=== PATIENT | female | born 1940 | race Caucasian/White ===

== ENCOUNTER → 2017-02-19 | Outpatient (CLI) | payer MEDICARE ==
--- NOTE | 2017-02-19 12:58 | Diagnostic Imaging Report ---
3 views of the lumbar spine. INDICATION: Back pain. FINDINGS: There is an S-shaped scoliosis with prominent left convexity scoliotic curvature centered around L2 vertebral body. The alignment of the posterior spinal line appears to be satisfactory. No compression fractures evident based on the AP projection. The lateral projection is difficult to evaluate for vertebral body height due to the significant scoliosis. There are disc degenerative changes particularly prominent around the concavity of the scoliosis around L2-L3 level on the right side and along the left side of the disc at L4-L5 and L5-S1. There is suggestion of lower lumbar spine facet arthropathy. IMPRESSION: Severe thoracolumbar S-shaped scoliosis with advanced degenerative disc and facet changes in the lumbar spine. Dictated by: Dictated on workstation # [id number]
--- NOTE | 2017-02-19 13:21 | Diagnostic Imaging Report ---
EXAMINATION: PA and lateral views of the chest. INDICATION: Cough. FINDINGS: There is an S-shaped thoracolumbar scoliosis convex to the right side in the mid thoracic spine. The lungs appear hyperinflated. The heart size is normal. No effusion or pneumothorax. The mediastinum and radha appear unremarkable. IMPRESSION: COPD. Prominent S-shaped thoracolumbar scoliosis. Dictated by: Dictated on workstation # [id number]
== END ==
LOC: RAD 12:13
PROVIDERS: ATTEND Family Medicine
DX: J44.9 Chronic obstructive pulmonary disease, unspecified (principal); M41.30 Thoracogenic scoliosis, site unspecified; M51.36 Other intervertebral disc degeneration, lumbar region
CPT/HCPCS: 71020; 72100

== ENCOUNTER → 2017-03-22 | Outpatient (CLI) | payer MEDICARE ==
--- NOTE | 2017-03-22 11:44 | Diagnostic Imaging Report ---
EXAMINATION: DEXA scan. INDICATION: Osteopenia. TECHNIQUE: Bone mineral density estimated based on dual energy radiography over the lumbar spine and femoral necks, was performed. FINDINGS: The lumbar spine T-score is -0.8. This is a 0.9% decreased density measurement compared to previous study of 06/25/2014. The lumbar spine measurements are exaggerated by sclerotic degenerative changes. T score over the left femoral neck is -1.6 and on the right side is -2. This is not significantly changed from 2015. IMPRESSION: Osteopenia. Dictated by: Dictated on workstation # [id number]
== END ==
LOC: RAD 09:53
PROVIDERS: ATTEND Family Medicine
DX: M85.88 Other specified disorders of bone density and structure, other site (principal); M81.8 Other osteoporosis without current pathological fracture
CPT/HCPCS: 77080

== ENCOUNTER → 2017-11-22 | Outpatient (CLI) | payer MEDICARE ==
--- NOTE | 2017-11-22 16:39 | Diagnostic Imaging Report ---
PROCEDURE: US carotid duplex, bilateral. TECHNIQUE: Multiple real-time grayscale images were obtained over the carotid arteries in various projections, bilaterally. Additional duplex Doppler and color Doppler images were also obtained. INDICATION: Amaurosis fugax. Visual disturbances in the left eye. COMPARISON: Report from [facility] neck from 04/22/2010. FINDINGS: There is mild focal calcific atherosclerosis in the proximal left internal carotid artery, causing approximately 30% stenosis visually. There is also mild calcific atherosclerosis in the proximal right internal carotid artery, causing up to 50% stenosis visually. No significant stenosis is seen in the bilateral common carotid arteries. Waveforms appear normal bilaterally. The vertebral arteries are antegrade. Parameters based on the consensus panel Simms-Scale and Doppler ultrasound criteria published February 2003, Radiology, Volume 229. DOPPLER (peak systolic velocity M/S Right Left CCA 86 73 ICA Proximal 88 148 ICA Mid 79 128 ICA Distal 157 108 RATIO 1.8 2.0 ECA 99 118 VERT 108, antegrade 78, antegrade IMPRESSION: 1. Atherosclerosis of the proximal left internal carotid artery appears less than 50% visually, but qualifies as 50-69% stenosis by flow velocity criteria. 2. Atherosclerosis at the proximal right internal carotid artery appears to cause 50% stenosis visually, but no significant stenosis by flow velocity criteria. Distal ICA velocity is increased, likely due to tortuosity. Dictated by: Dictated on workstation # [id number]
== END ==
LOC: RAD 15:41
PROVIDERS: ATTEND Family Medicine
DX: I65.23 Occlusion and stenosis of bilateral carotid arteries (principal)
CPT/HCPCS: 93880

== ENCOUNTER → 2020-03-23 | Outpatient (CLI) | payer MEDICARE ==
--- NOTE | 2020-03-23 10:10 | Diagnostic Imaging Report ---
PROCEDURE: US Gallbladder. TECHNIQUE: Multiple real-time grayscale images were obtained over the right upper quadrant in various projections. INDICATION: Gallbladder ultrasound. INDICATION: Abdominal pain. There are no prior studies available for comparison. There is no evidence for cholelithiasis or acute cholecystitis and the common bile duct is not dilated. The liver does not appear enlarged. There is no focal mass involving the liver and the biliary tree is not abnormally dilated. Spectral and color-flow imaging of the portal vein shows the vein is patent. The pancreas, the aorta and inferior vena cava and the right kidney are unremarkable for an acute abnormality. There is no mass or free fluid collection evident. IMPRESSION: 1. There is no acute abnormality in the right upper quadrant. 2. If clinical concern regarding an acute abnormality of the gallbladder persists and further imaging is desired, then a nuclear medicine hepatobiliary scan would be recommended. Dictated by: Dictated on workstation # [id number]
== END ==
LOC: RAD 08:30
PROVIDERS: ATTEND Internal Medicine Gastroenterology
DX: K80.20 Calculus of gallbladder without cholecystitis without obstruction (principal)
CPT/HCPCS: 76705

== ENCOUNTER → 2022-03-10 | Outpatient (CLI) | payer MEDICARE ==
--- NOTE | 2022-03-10 11:27 | Diagnostic Imaging Report ---
CLINICAL INDICATION: Patient is having low back pain with left leg pain and right lower pelvic area numbness. EXAM: MRI of the lumbar spine performed without IV contrast. Sagittal T2, sagittal T1, sagittal T2 fat-sat, coronal T2, and axial T2. COMPARISON: X-ray of the lumbar spine dated 02/19/2017. FINDINGS: There is roughly 44 degrees of levorotoscoliosis of the lumbar spine with apex at the L2-L3 disk space region. There are hypertrophic spurs throughout the lumbar spine and facet arthropathy. The visualized portions of the distal thoracic spinal cord, conus medullaris, and cauda equina nerve roots are unremarkable. The conus medullaris tip is seen at the upper L2 vertebral body level. There is no significant paraspinal soft tissue abnormality. There is a 9 mm cyst involving the upper aspect of the left kidney. T12-L1: There is minimal diffuse disk bulge and mild bilateral facet arthropathy. There is no significant central spinal canal or neural foramen narrowing. L1-L2: There is moderate right facet arthropathy and mild left facet arthropathy. There is a minimal diffuse disk bulge with severe loss of disk space height. There is mild central canal stenosis predominantly due to facet arthropathy. There is plquendp-lr-neoxig right neural foramen narrowing. There is no significant left neural foramen narrowing. L2-L3: Minimal diffuse disk bulge with hypertrophic far lateral disk spur. Severe loss of disk space height. There is moderate bilateral facet arthropathy with hypertrophic changes on the right side. There is ligamentum flavum buckling. There is no significant central canal stenosis. There is no significant neural foramen narrowing. L3-L4: There is diffuse disk bulge and cujwgufb-sd-vofugu loss of disk space height. There is severe right facet arthropathy/hypertrophy and moderate left facet arthropathy/hypertrophy. There is qeyo-fg-nerqusaz central canal stenosis. There is mild left neural foramen narrowing and moderate right neural foramen narrowing. L4-L5: There is severe left facet arthropathy/hypertrophy and mild right facet arthropathy. There is mild central canal stenosis. There is mild right neural foramen narrowing, and there is severe left neural foramen narrowing. L5-S1: There is diffuse disk bulge and mild loss of disk space height. There is severe left facet arthropathy/hypertrophy and moderate right facet arthropathy. There is no significant central canal stenosis. There is severe left neural foramen narrowing and bsog-gw-rikchqxx right neural foramen narrowing. IMPRESSION: There is levorotoscoliosis and severe degenerative disease of the lumbar spine, which is described in detail above. Dictated by: Dictated on workstation # [id number]
== END ==
LOC: RAD 09:30
PROVIDERS: ATTEND Family Medicine
DX: M47.816 Spondylosis without myelopathy or radiculopathy, lumbar region (principal); M51.36 Other intervertebral disc degeneration, lumbar region; M51.26 Other intervertebral disc displacement, lumbar region; M48.061 Spinal stenosis, lumbar region without neurogenic claudication; M41.86 Other forms of scoliosis, lumbar region; R20.0 Anesthesia of skin
CPT/HCPCS: 72148

== ENCOUNTER → 2022-03-29 | Outpatient (CLI) | payer MEDICARE | LOC: CARD 14:00 | PROVIDERS: ATTEND Internal Medicine Cardiovascular Disease | DX: I34.0 Nonrheumatic mitral (valve) insufficiency (principal); I10 Essential (primary) hypertension; I25.10 Atherosclerotic heart disease of native coronary artery without angina pectoris | CPT/HCPCS: 93306 ==

== ENCOUNTER → 2022-04-05 | Outpatient (CLI) | payer MEDICARE ==
[~2022-04-05] VITALS: Ht 153.9 cm; Wt 91.7 kg
[2022-04-05 10:11] VITALS: BP 161/80
--- NOTE | 2022-04-05 17:32 | Cardiology Stress Test Report ---
Stress Test Report Date of Procedure/Referring: Date of Procedure: Apr 05, 2022 PCP Carmela Covarrubias DO Admitting Physician Admitting Physician: Attending Physician: Paulina Gonzalez MD Indications: HTN Baseline Heart Rate: 71 Baseline Blood Pressure: Blood Pressure Systolic: 161 Blood Pressure Diastolic: 80 Vital Signs Date Time Temp Pulse Resp B/P (MAP) Pulse Ox O2 Delivery O2 Flow Rate FiO2 04/05/22 10:11 70 20 161/80 (107) 98 Room Air Baseline Vital Signs Vital Signs Date Time Temp Pulse Resp B/P (MAP) Pulse Ox O2 Delivery O2 Flow Rate FiO2 04/05/22 10:11 70 20 161/80 (107) 98 Room Air Baseline EKG: Baseline EKG: NSR, RBBB Summary: After explaining the procedure and details to the patient, she signed the consent and was brought to the stress nuclear laboratory. Patient exercised on standard Robin protocol, EKG, heart rate and blood pressure were monitored continuously, resting and stress doses of radio tracer were injec elysia, imaging was acquired and reviewed in the short axis, horizontal long axis and vertical long axis views Patient was able to exercise for a total of 2.30 minutes on Robin protocol, METs 4.0 Maximum heart rate 141 Maximum blood pressure 183/60 Stress EKG, Minimal nondiagnostic changes Recovery EKG, Return to baseline TID: 1.15 SSS: 3 SDS: 1 EF: 68 Conclusion: 1. Fair exercise tolerance for a total of 2 minutes and 30 seconds on standard Robin protocol, 4 METS achieving 100% of maximal expected heart rate 2. Appropriate heart rate response to exercise with hypertensive response to exercise return to baseline during recovery 3. Baseline right bundle branch block with nondiagnostic EKG changes with exercise return to baseline during recovery 4. No significant ischemia or infarction noted on SPECT images 5. Normal left ventricular size, ejection fraction 68% Copy Copies To 1: CARMELA COVARRUBIAS BASHAR J MD Apr 05, 2022 17:32
== END ==
LOC: CARD 08:16
PROVIDERS: ATTEND Internal Medicine Cardiovascular Disease
DX: I10 Essential (primary) hypertension (principal); I25.10 Atherosclerotic heart disease of native coronary artery without angina pectoris
CPT/HCPCS: 78452; 93017; A9502

== ENCOUNTER → 2022-11-28 | Outpatient (CLI) | payer MEDICARE ==
--- NOTE | 2022-11-28 09:42 | Diagnostic Imaging Report ---
INDICATION: Postmenopausal state. COMPARISON: 03/22/2017 FINDINGS: AP Spine L2-L4: [BMD (g/cm2): 1.014] [T-Score: -1.5] [Z-Score: 0.5] [BMD Previous: 1.085] [BMD % Change: -6.5*] LT Hip Neck: [BMD (g/cm2): 0.686] [T-Score: -2.5] [Z-Score: -0.3] LT Hip Total: [BMD (g/cm2):0.740] [T-Score:-2.1] [Z-Score: 0.0] [BMD Previous: 0.805] [BMD % Change: -8.1*] RT Hip Neck: [BMD (g/cm2):0.712] [T-Score:-2.3] [Z-Score:-0.1] RT Hip Total: [BMD (g/cm2):0.730] [T-score:-2.2] [Z-Score:-0.1] [BMD Previous:0.754] [BMD % Change:-3.2] *Indicates significant change from prior examination based on 95% confidence level. World Health Organization criteria for BMD interpretation classify patients as Normal (T-score at or above -1.0), Osteopenic (T-score between -1.0 and -2.5) or Osteoporotic (T-score at or below -2.5). LIMITATIONS AND MODIFICATION: Significant curvature and degenerative changes of the thoracolumbar spine noted. FRACTURE RISK (FRAX SCORE): The ten year probability of (%): Major Osteoporotic Fracture: [19.3] Hip Fracture: [7.0] IMPRESSION: 1. Osteoporosis. 2. Bone mineral density within the bilateral hips has not significantly changed since the prior examination. However, bone mineral density within the lumbar spine has significantly decreased. 3. See below National Osteoporosis Foundation guidelines on when to potentially initiate pharmacologic therapy. Based on the National Osteoporosis Foundation Guidelines, pharmacologic treatment should be initiated in any of the following, unless clinical conditions suggest otherwise: * Any patient with prior fragility fracture of the hip or vertebrae. A spine fracture indicates 5X risk for subsequent spine fracture and 2X risk for subsequent hip fracture. * Osteoporosis (T-score <-2.5). * Postmenopausal women and men age 50 and older with low bone mass/osteopenia (T-score between -1.0 and -2.5) by DXA and 10-year major osteoporotic fracture greater than 20% or a 10-year probability of hip fracture greater than 3%. These fracture risks are supplied above in the FRAX score, if applicable. * Clinician judgement and/or patient preferences may indicate treatment for people with 10-year fracture probabilities above or below these levels. Dictated by: Dictated on workstation # [id number]
== END ==
LOC: RAD 08:07
PROVIDERS: ATTEND Obstetrics & Gynecology
DX: M81.0 Age-related osteoporosis without current pathological fracture (principal)
CPT/HCPCS: 77080